=== PATIENT | female | born 1980 | race Two or more races ===

== ENCOUNTER 2018-02-02 10:30 | Outpatient (CLI) | payer OTHER | END 2018-02-02 10:32 | disposition home or self-care (01) | LOC: SONOGRAMA 10:30 | DX: E04.2 Nontoxic multinodular goiter (principal) ==

== ENCOUNTER → 2020-02-21 | Outpatient (CLI) | payer OTHER | END | disposition home or self-care (01) | LOC: SONOGRAMA 11:37 | PROVIDERS: ATTEND Pathology Anatomic Pathology & Clinical Pathology | DX: E05.20 Thyrotoxicosis with toxic multinodular goiter without thyrotoxic crisis or storm (principal) ==

== ENCOUNTER 2023-01-20 11:22 | Outpatient (CLI) | payer OTHER | END 2023-01-20 11:25 | disposition home or self-care (01) | LOC: SONOGRAMA 11:22 | PROVIDERS: ATTEND Pathology Anatomic Pathology & Clinical Pathology | DX: D44.0 Neoplasm of uncertain behavior of thyroid gland (principal); E07.9 Disorder of thyroid, unspecified ==

== ENCOUNTER 2023-11-07 10:02 | Outpatient (CLI) | payer OTHER | END 2023-11-07 10:05 | disposition home or self-care (01) | LOC: SONOGRAMA 10:02 | PROVIDERS: ATTEND Pathology Anatomic Pathology | DX: E04.2 Nontoxic multinodular goiter (principal) ==